=== PATIENT | female | born 1970 | race Caucasian/White ===

== ENCOUNTER 2020-06-18 22:53 | Emergency (ER) | payer OTHER ==
[~2020-06-18] VITALS: Ht 165.1 cm; Wt 96.6 kg
[2020-06-18 22:53] VITALS: BP 140/91
--- NOTE | 2020-06-18 23:06 | NUR ---
BIBA PLACED IN BED 11.
--- NOTE | 2020-06-18 23:06 | NUR ---
ER MD AT BEDSIDE EVALUATING PT AT THIS TIME.
[2020-06-18] MEDS ORDERED: KETOROLAC 60 MG/2 ML VIAL IM ONE (23:10)
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
--- NOTE | 2020-06-18 23:15 | NUR ---
PT TAKEN TO X-RAY [facility]IA [facility].
--- NOTE | 2020-06-18 23:24 | NUR ---
MAKENNA TREVINO GAVE PT REPORT NUMBER [id number]
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
--- NOTE | 2020-06-18 23:45 | NUR ---
PT RETURNED FROM X-RAY AT THIS TIME.
[2020-06-18] MEDS ORDERED: NAPR-54 PO (23:46)
--- NOTE | 2020-06-19 00:35 | NUR ---
Patient discharged with v/s stable. Written and verbal after care instructions given and explained BY COLLEEN BAEZ.Patient alert, oriented and verbalized understanding of instructions COLLEEN BAEZ. Ambulatory with steady gait. All questions addressed prior to discharge. ID band removed. Patient advised to follow up with PMD. Rx of NAPROSYN given. Patient educated on indication of medication including possible reaction and side effects. Opportunity to ask questions provided and answered.
== END 2020-06-18 23:53 | disposition home or self-care (01) ==
LOC: MED 22:53
DX: S33.5XXA Sprain of ligaments of lumbar spine, initial encounter (principal); Z88.1 Allergy status to other antibiotic agents; Z91.013 Allergy to seafood; Y04.8XXA Assault by other bodily force, initial encounter; Y93.89 Activity, other specified; Y92.89 Other specified places as the place of occurrence of the external cause; Y99.8 Other external cause status
CPT/HCPCS: 72110; 96372; 99283; J1885

== ENCOUNTER 2021-02-17 18:51 | Emergency (ER) | payer BC, OTHER ==
[~2021-02-17] VITALS: Ht 160 cm; Wt 97.5 kg
[~2021-02-17 18:51] MED LIST: NAPR-54 PO
[2021-02-17 19:02] VITALS: BP 130/75
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
--- NOTE | 2021-02-17 19:18 | NUR ---
Pt report given to YOLANDA BECKWITH. Transfer of care at this time.
--- NOTE | 2021-02-17 19:20 | NUR ---
PT'S BELONGINGS COLLECTED AND PICKED UP BY SECURITY FOR STORAGE IN [facility]
--- NOTE | 2021-02-17 19:31 | NUR ---
Said examining patient.
[2021-02-17] MEDS ORDERED: LIDOCAINE 5% 1 EA PATCH TP SCH (19:35)
[2021-02-17] MEDS ORDERED: HYDROcodone/APAP 5/325 MG 1 TAB TAB PO ONE (19:35)
[2021-02-17] MEDS ORDERED: IBUPROFEN 600 MG TAB PO ONE (19:35)
[2021-02-17 21:08] LABS: BASOPHILS % (AUTO) 0.2 % (0.0-2.0); EOSINOPHILS % (AUTO) 0.1 % (0.0-4.0); HEMOGLOBIN 11.4 g/dL (12.0-16.0); LYMPHOCYTES % (AUTO) 12.9 % (20.5-51.1); MEAN CORPUSCULAR HEMOGLOBIN 29 pg (27-31); MEAN CORPUSCULAR HGB CONC 33 g/dL (33-37); MEAN CORPUSCULAR VOLUME 85.8 fL (80-94); MONOCYTES # (AUTO) 0.5 K/uL (0.8-1.0); MONOCYTES % (AUTO) 6.2 % (1.7-9.3); NEUTROPHILS # (AUTO) 6.4 K/uL (1.8-7.7); NEUTROPHILS % (AUTO) 80.6 % (42.2-75.2); PLATELET COUNT (AUTO) 222 K/uL (140-450); RED BLOOD CELL COUNT(AUTO) 3.97 MIL/uL (4.20-5.40); RED CELL DISTRIBUTION WIDTH 13.7 % (11.6-13.7); WHITE BLOOD COUNT (AUTO) 7.9 K/uL (4.8-10.8)
[2021-02-17 21:21] LABS: ALBUMIN 3.2 g/dL (3.4-5.0); ANION GAP 7.6 (8-16); ASPARTATE AMINOTRANSFERASE 10 U/L (15-37); CARBON DIOXIDE 30.8 mmol/L (21-32); CHLORIDE 105 mmol/L (98-107); CREATININE 0.9 mg/dL (0.6-1.3); GFR ARICAN-AMERICAN 86 mL/min (>90); GLUCOSE 143 mg/dL (74-106); LIPASE 42 U/L (73-393); POTASSIUM 3.4 mmol/L (3.5-5.1); SODIUM SERUM 140 mmol/L (136-145); TOTAL BILIRUBIN 0.2 mg/dL (0.0-1.0); UREA NITROGEN, BLOOD 13 mg/dL (7-18)
[2021-02-17 21:22] LABS: SALICYLATE < 2.8 mg/dL (2.8-20.0)
[2021-02-17 21:24] LABS: ACETAMINOPHEN < 0.5 ug/ml (10-30)
[2021-02-18] MEDS ORDERED: diphenhydrAMINE 50 MG CAP PO ONE
[2021-02-18] MEDS ORDERED: KETOROLAC 60 MG/2 ML VIAL IM ONE
--- NOTE | 2021-02-18 02:42 | NUR ---
PT SLEEPING AND EASLIY CARL, NO C/O AND NO DISTRESS AT THIS TIME. Addendum: 02/18/21 at 321 by [email or web address] Patient appears to be resting comfortably in bed. Vital Signs within normal limits. Respirations even and unlabored. BOTH SIDE RAILS UP AND BED AT LOWEST POSTION. Addendum: 02/18/21 at 032 by [email or web address] Patient appears to be resting comfortably in bed. Vital Signs within normal limits. Respirations even and unlabored. BOTH SIDE RAILS UP AND BED AT LOWEST POSTION.
--- NOTE | 2021-02-18 03:16 | NUR ---
PT'S RESPIRATIONS AT 9, PUT PT IN SEMI HIGH FOWLERS AND RESPIRATIONS CHANGED TO 12. PT RESTING WITH EYES CLOSED AND NO C/O.
--- NOTE | 2021-02-18 03:21 | NUR ---
Patient appears to be resting comfortably in bed. Vital Signs within normal limits. Respirations even and unlabored. Bed in lowest position and side rails up for safety. All needs met at this time.
--- NOTE | 2021-02-18 04:33 | NUR ---
Patient appears to be resting comfortably in bed. Vital Signs within normal limits. Respirations even and unlabored. BOTH BED RAIL UP AND BED AT LOWEST POSITION.
[2021-02-18 05:16] LABS: BARBITURATE, URINE NEGATIVE ng/ml (NEG <=200); BENZODIAZEPINE, URINE NEGATIVE ng/mL (NEG <=200); CANNABINOID, URINE POSITIVE ng/mL (NEG <=50); COCAINE, URINE NEGATIVE ng/mL (NEG <=300); OPIATE, URINE POSITIVE ng/mL (NEG <=2000); PHENCYCLIDINE SCREEN,URINE NEGATIVE ng/mL (NEG <=25)
--- NOTE | 2021-02-18 05:47 | NUR ---
Patient appears to be resting comfortably in bed. Vital Signs within normal limits. Respirations even and unlabored.BOTH SIDE RAILS UP AND BED AT LOWEST POSITION.
--- NOTE | 2021-02-18 06:59 | NUR ---
Patient appears to be resting comfortably in bed. Vital Signs within normal limits. Respirations even and unlabored. BOTH BED RAILS ARE DONE WITH BED IN LOWEST POSITION.
--- NOTE | 2021-02-18 07:30 | NUR ---
received pt in [facility]. remains on 5150 hold. pt denies any SI. realizes she needs help but does not feel suicidal at this time. pending telepsych.
[2021-02-18] MEDS ORDERED: HYDROcodone/APAP 5/325 MG 1 TAB TAB PO ONE (08:35)
--- NOTE | 2021-02-18 08:44 | NUR ---
CC received packet.
[2021-02-18] MEDS ORDERED: LIDOCAINE 5% 1 EA PATCH TP SCH (09:00)
--- NOTE | 2021-02-18 09:00 | NUR ---
pt on telepsych
--- NOTE | 2021-02-18 12:22 | NUR ---
spoke to psychiatrist pt is dc and will be taken straight to [facility] for voluntary admission. pt aware. spoke to cousin who states she will take her immediately to [facility] for admission.
[2021-02-18 13:49] VITALS: BP 111/68
== END 2021-02-18 14:03 | disposition home or self-care (01) ==
LOC: MED 18:51
DX: R45.851 Suicidal ideations (principal); Z20.822 Contact with and (suspected) exposure to COVID-19; M54.9 Dorsalgia, unspecified; G89.29 Other chronic pain; D50.9 Iron deficiency anemia, unspecified; E87.6 Hypokalemia; F32.9 Major depressive disorder, single episode, unspecified; F41.9 Anxiety disorder, unspecified; Z98.890 Other specified postprocedural states; Z79.899 Other long term (current) drug therapy; Z88.1 Allergy status to other antibiotic agents; Z91.013 Allergy to seafood
CPT/HCPCS: 36415; 80053; 80305; 83690; 84703; 85025; 87426; 96372; 99285; G0480; G0482; J1885; Q0163; U0003; 93005

== ENCOUNTER 2023-02-25 10:28 | Observation (INO) | payer BC, OTHER ==
[~2023-02-25] VITALS: Ht 160 cm; Wt 100.2 kg
[2023-02-25 10:29] VITALS: BP 143/80; PULSE 90; RESP 18; TEMP 98.1; O2SAT 95
[2023-02-25] MEDS ORDERED: LIDOCAINE 4% PATCH 1 EA PATCH TP ONE ×2 (11:29→11:30)
[2023-02-25] MEDS ORDERED: MORPHINE SULFATE 4 MG/ML SYR IVP ONE ×2 (11:30→15:00)
[2023-02-25] MEDS ORDERED: KETOROLAC 30 MG/ML VIAL IVP ONE (11:30)
[2023-02-25] MEDS ORDERED: methocarbamoL 500 MG TAB PO ONE (11:30)
[2023-02-25 15:32] LABS: APPEARANCE,URINE CLEAR (CLEAR); BILIRUBIN,URINE NEGATIVE (NEGATIVE); BLOOD, URINE NEGATIVE (NEGATIVE); COLOR,URINE YELLOW (YELLOW); LEUKOCYTE ESTERASE ,URINE NEGATIVE (NEGATIVE); NITRITE, URINE NEGATIVE (NEGATIVE); PROTEIN,URINE NEGATIVE (NEGATIVE); UGLUCOSE NEGATIVE (NEGATIVE); UROBILINOGEN,URINE 0.2 EU/dL (0.2 - 1)
[2023-02-25] MEDS ORDERED: MAGNESIUM OXIDE 400 MG TAB PO PRN (15:45)
[2023-02-25] MEDS ORDERED: ONDANSETRON 4 MG/2 ML VIAL IVP PRN (15:45)
[2023-02-25] MEDS ORDERED: POTASSIUM CHLORIDE 10 MEQ TABER PO PRN (15:45)
[2023-02-25] MEDS ORDERED: ACETAMINOPHEN 325 MG TAB PO PRN (15:45)
[2023-02-25] MEDS ORDERED: HYDROcodone/APAP 5/325 MG 1 TAB TAB PO PRN (15:45)
[2023-02-25] MEDS ORDERED: MORPHINE SULFATE 4 MG/ML SYR IVP PRN (15:45)
[2023-02-25] MEDS ORDERED: CYCL5TAB2 PO (16:30)
[2023-02-25] MEDS ORDERED: NAPR-1560 PO (16:30)
[2023-02-25] MEDS ORDERED: PANT40EC56 PO (16:30)
[2023-02-25] MEDS ORDERED: ACET-1182 PO (16:30)
[2023-02-25 17:15] VITALS: BP 148/81; PULSE 63; RESP 18; TEMP 97.2; O2SAT 98
[2023-02-25] MEDS: CYCLOBENZAPRINE 10 MG TAB PO SCH (17:29)
[2023-02-25 17:35] VITALS: PULSE 63; RESP 18; O2SAT 100
[2023-02-25] MEDS ORDERED: NACL 0.9% 1,000 ML IV SCH (18:50)
[2023-02-25] MEDS ORDERED: hydrALAZINE 25 MG TAB PO PRN (18:50)
[2023-02-25 20:00] VITALS: BP 154/93; PULSE 65; RESP 18; TEMP 98; O2SAT 100
[2023-02-25] MEDS ORDERED: HYDROmorphone 1 MG/ML AMP IVP PRN (22:55)
[2023-02-26] MEDS: KETOROLAC 30 MG/ML VIAL IVP SCH ×3 (01:56→12:42)
[2023-02-26 04:00] VITALS: BP 145/77; PULSE 71; RESP 18; TEMP 97.3; O2SAT 100
[2023-02-26 07:04] LABS: BASOPHILS % (AUTO) 0.3 % (0.0-2.0); EOSINOPHILS # (AUTO) 0.2 K/uL (0-0.4); EOSINOPHILS % (AUTO) 2.5 % (0.0-4.0); HEMATOCRIT 38.5 % (36-48); HEMOGLOBIN 12.6 g/dL (12.0-16.0); LYMPHOCYTES # (AUTO) 2.1 K/uL (2.5-16.5); LYMPHOCYTES % (AUTO) 34.1 % (20.5-51.1); MEAN CORPUSCULAR HEMOGLOBIN 28 pg (27-31); MEAN CORPUSCULAR HGB CONC 33 g/dL (33-37); MEAN CORPUSCULAR VOLUME 87.1 fL (80-94); MONOCYTES # (AUTO) 0.7 K/uL (0.8-1.0); MONOCYTES % (AUTO) 10.8 % (1.7-9.3); NEUTROPHILS # (AUTO) 3.2 K/uL (1.8-7.7); NEUTROPHILS % (AUTO) 52.3 % (42.2-75.2); PLATELET COUNT (AUTO) 243 K/uL (140-450); RED BLOOD CELL COUNT(AUTO) 4.43 MIL/uL (4.20-5.40); RED CELL DISTRIBUTION WIDTH 13.5 % (11.6-13.7); WHITE BLOOD COUNT (AUTO) 6.1 K/uL (4.8-10.8)
[2023-02-26 07:39] LABS: ANION GAP 11.6 (8-16); CALCIUM 8.7 mg/dL (8.5-10.1); CREATININE 0.6 mg/dL (0.6-1.3); POTASSIUM 3.6 mmol/L (3.5-5.1)
[2023-02-26 08:00] VITALS: BP 135/85; PULSE 54; RESP 18; TEMP 96.1; O2SAT 100
[2023-02-26] MEDS ORDERED: ENOXAPARIN 40 MG/0.4 ML SYR SUBQ SCH (09:00)
[2023-02-26] MEDS: CYCLOBENZAPRINE 10 MG TAB PO SCH ×2 (10:58→12:41)
[2023-02-26] MEDS ORDERED: PRED20TA5 PO (11:05)
[2023-02-26] MEDS ORDERED: ACET-3117 PO (11:05)
[2023-02-26 11:53] VITALS: BP 145/77; PULSE 71; RESP 18; TEMP 97.3
== END 2023-02-26 18:20 | disposition home or self-care (01) ==
LOC: MED 10:28 → MTU 15:44
PROVIDERS: ADMIT Student in an Organized Health Care Education/Training Program; ATTEND Student in an Organized Health Care Education/Training Program
DX: S39.012A Strain of muscle, fascia and tendon of lower back, initial encounter (principal); E66.9 Obesity, unspecified; E78.5 Hyperlipidemia, unspecified; I10 Essential (primary) hypertension; M19.90 Unspecified osteoarthritis, unspecified site; Z79.899 Other long term (current) drug therapy; X58.XXXA Exposure to other specified factors, initial encounter; Y93.89 Activity, other specified; Y92.89 Other specified places as the place of occurrence of the external cause; Y99.8 Other external cause status
CPT/HCPCS: 36415; 72131; 80048; 81003; 85025; 87081; 96361; 96372; 96374; 96375; 96376; 97116; 97162; 97530; 99285; G0378; J1170; J1885; J2270; J1650

== ENCOUNTER 2023-11-23 11:09 | Emergency (ER) | payer OTHER ==
[~2023-11-23] VITALS: Ht 160 cm; Wt 98.4 kg
[~2023-11-23 11:09] MED LIST changes: +ACET-1182 PO; -NAPR-54 PO; +PANT40EC56 PO
[2023-11-23 11:12] VITALS: BP 151/98; PULSE 62; RESP 18; TEMP 98.1; O2SAT 100
[2023-11-23 12:44] LABS: BASOPHILS % (AUTO) 0.4 % (0.0-2.0); EOSINOPHILS # (AUTO) 0.1 K/uL (0-0.4); EOSINOPHILS % (AUTO) 0.9 % (0.0-4.0); HEMOGLOBIN 12.8 g/dL (12.0-16.0); LYMPHOCYTES # (AUTO) 2.2 K/uL (2.5-16.5); MEAN CORPUSCULAR HEMOGLOBIN 28 pg (27-31); MEAN CORPUSCULAR HGB CONC 33 g/dL (33-37); MONOCYTES # (AUTO) 0.6 K/uL (0.8-1.0); MONOCYTES % (AUTO) 9.1 % (1.7-9.3); NEUTROPHILS # (AUTO) 3.5 K/uL (1.8-7.7); NEUTROPHILS % (AUTO) 54.6 % (42.2-75.2); PLATELET COUNT (AUTO) 234 K/uL (140-450); RED BLOOD CELL COUNT(AUTO) 4.53 MIL/uL (4.20-5.40); RED CELL DISTRIBUTION WIDTH 13.3 % (11.6-13.7); WHITE BLOOD COUNT (AUTO) 6.4 K/uL (4.8-10.8)
[2023-11-23 12:53] LABS: ANION GAP 11.7 (8-16); CALCIUM 9.2 mg/dL (8.5-10.1); CARBON DIOXIDE 27.9 mmol/L (21-32); CREATININE 0.7 mg/dL (0.6-1.3); POTASSIUM 3.6 mmol/L (3.5-5.1)
[2023-11-23] MEDS: ONDANSETRON 4 MG/2 ML VIAL IVP ONE (12:58)
[2023-11-23] MEDS: MORPHINE SULFATE 4 MG/ML SYR IVP ONE (12:59)
[2023-11-23 13:38] LABS: APPEARANCE,URINE CLEAR (CLEAR); BILIRUBIN,URINE NEGATIVE (NEGATIVE); BLOOD, URINE NEGATIVE (NEGATIVE); COLOR,URINE YELLOW (YELLOW); LEUKOCYTE ESTERASE ,URINE NEGATIVE (NEGATIVE); NITRITE, URINE NEGATIVE (NEGATIVE); PROTEIN,URINE NEGATIVE (NEGATIVE); UGLUCOSE NEGATIVE (NEGATIVE); UROBILINOGEN,URINE 0.2 EU/dL (0.2 - 1)
[2023-11-23 15:56] LABS: ALCOHOL, BLOOD < 3 mg/dL (<10); SALICYLATE 3.2 mg/dL (2.8-20.0)
[2023-11-23 15:59] LABS: AMPHETAMINE, URINE NEGATIVE ng/ml (NEG <=1000); BARBITURATE, URINE NEGATIVE ng/ml (NEG <=200); BENZODIAZEPINE, URINE NEGATIVE ng/mL (NEG <=200); CANNABINOID, URINE NEGATIVE ng/mL (NEG <=50); COCAINE, URINE NEGATIVE ng/mL (NEG <=300); OPIATE, URINE NEGATIVE ng/mL (NEG <=2000); PHENCYCLIDINE SCREEN,URINE NEGATIVE ng/mL (NEG <=25)
[2023-11-23 16:30] VITALS: BP 131/71; PULSE 61; RESP 18; O2SAT 100
[2023-11-23] MEDS ORDERED: DIPH25TA53 PO (17:43)
== END 2023-11-23 17:51 | disposition home or self-care (01) ==
LOC: MED 11:09
DX: R45.851 Suicidal ideations (principal); R07.89 Other chest pain; Z86.39 Personal history of other endocrine, nutritional and metabolic disease; Z98.890 Other specified postprocedural states; Z79.899 Other long term (current) drug therapy; Z88.1 Allergy status to other antibiotic agents; Z91.013 Allergy to seafood
CPT/HCPCS: 36415; 71045; 80048; 80305; 81003; 83880; 84484; 85025; 93005; 96374; 96375; 99285; G0480; G0482; J2270; J2405; Q0092

== ENCOUNTER 2024-01-26 11:40 | Emergency (ER) | payer OTHER ==
[~2024-01-26] VITALS: Ht 160 cm; Wt 99.8 kg
[~2024-01-26 11:40] MED LIST changes: +DIPH25TA53 PO
[2024-01-26 11:53] VITALS: BP 133/71; PULSE 71; RESP 18; O2SAT 99
[2024-01-26] MEDS: MORPHINE SULFATE 4 MG/ML SYR IM ONE (12:57)
[2024-01-26] MEDS: LIDOCAINE 5% 1 EA PATCH TP ONE (12:58)
[2024-01-26] MEDS ORDERED: TRAM50TA3 PO (13:51)
[2024-01-26] MEDS ORDERED: LIDOCAINE 5% 1 EA PATCH TP ONE (14:24)
[2024-01-26 15:35] VITALS: BP 133/71; PULSE 71; RESP 18; O2SAT 99
== END 2024-01-26 15:35 | disposition home or self-care (01) ==
LOC: MED 11:40
DX: M54.16 Radiculopathy, lumbar region (principal); G89.29 Other chronic pain; M54.50 Low back pain, unspecified; I10 Essential (primary) hypertension; Z86.39 Personal history of other endocrine, nutritional and metabolic disease; Z79.899 Other long term (current) drug therapy; Z88.1 Allergy status to other antibiotic agents; Z91.013 Allergy to seafood
CPT/HCPCS: 96372; 99283; J2270